=== PATIENT | female | born 1975 | race Caucasian/White ===

== ENCOUNTER 2020-08-01 15:34 | Emergency (ER) | payer MEDICAID ==
--- NOTE | 2020-08-01 17:01 | ER Document Report ---
ED Medical Screen (RME) - General Chief Complaint: Shortness Of Breath Stated Complaint: SHORTNESS OF BREATH Time Seen by Provider: 08/01/20 16:58 Mode of Arrival: Wheelchair Information source: Patient Notes: 45-year-old female presents to ED for complaint of shortness of breath. She states she just left the hospital Saturday she states she was diagnosed with pneumonia. She states she has multiple antibiotic allergies and she does not remember the list. She states she cannot remember how long she was in the hospital or what antibiotic she was on. She states she did have IV antibiotics. She states she is not on any antibiotics at home. She states she left the hospital AMA on Saturday. She says someone will have to call her fianc for what allergies she has. I have greeted and performed a rapid initial assessment of this patient. A comprehensive ED assessment and evaluation of the patient, analysis of test results and completion of medical decision making process will be conducted by an additional ED providers. - Related Data Allergies/Adverse Reactions: metronidazole [From Flagyl] Allergy (Verified 08/01/20 16:58) morphine Allergy (Verified 08/01/20 16:58) Physical Exam - Vital signs Vitals: Temp Pulse Resp BP Pulse Ox 98.3 F 100 18 118/72 100 08/01/20 16:57 08/01/20 16:57 08/01/20 16:57 08/01/20 16:57 08/01/20 16:57 Course - Vital Signs Vital signs: Temp Pulse Resp BP Pulse Ox 98.3 F 100 18 118/72 100 08/01/20 16:57 08/01/20 16:57 08/01/20 16:57 08/01/20 16:57 08/01/20 16:57
--- NOTE | 2020-08-01 18:27 | RADIOLOGY REPORT (SQ) ---
EXAM DESCRIPTION: CHEST SINGLE VIEW IMAGES COMPLETED DATE/TIME: 08/01/2020 5:51 pm REASON FOR STUDY: Short of breath diagnosed with pneumonia left AMA COMPARISON: None. EXAM PARAMETERS: NUMBER OF VIEWS: One view. TECHNIQUE: Single frontal radiographic view of the chest acquired. RADIATION DOSE: NA LIMITATIONS: None. FINDINGS: LUNGS AND PLEURA: There is patchy opacification in the left mid lung field. MEDIASTINUM AND HILAR STRUCTURES: No masses. Contour normal. HEART AND VASCULAR STRUCTURES: Heart normal in size. Normal vasculature. BONES: No acute findings. HARDWARE: None in the chest. OTHER: No other significant finding. IMPRESSION: Lingular/ left lower lobe pneumonia. TECHNICAL DOCUMENTATION: JOB ID: [id number] 2010 [employer]- All Rights Reserved Reading location - IP/workstation name: [email or web address]
[2020-08-01 19:57] LABS: ABSOLUTE EOSINOPHILS # (AUTO) 0.1 10^3/uL (0.0-0.6); ABSOLUTE LYMPHOCYTES (AUTO) 2.2 10^3/uL (0.5-4.7); ABSOLUTE MONOCYTES (AUTO) 0.5 10^3/uL (0.1-1.4); ABSOLUTE NEUT (AUTO) 3.2 10^3/uL (1.7-8.2); BASOPHILS % (AUTO) 0.6 % (0-2); EOSINOPHILS % (AUTO) 1.8 % (0-6); HEMATOCRIT 33.8 % (36.0-47.0); HEMOGLOBIN 11.7 g/dL (12.0-15.5); LYMPHOCYTES % (AUTO) 36.8 % (13-45); MEAN CORPUSCULAR HGB CONC 34.5 g/dL (32.0-36.0); MEAN CORPUSCULAR VOLUME 90 fl (80-97); MONOCYTES % (AUTO) 7.9 % (3-13); PLATELET COUNT 453 10^3/uL (150-450); RED BLOOD COUNT 3.76 10^6/uL (3.72-5.28); RED CELL DISTRIBUTION WIDTH 12.6 % (11.5-14.0); SEGMENTED NEUTROPHILS % (AUTO) 52.9 % (42-78); TOTAL CELLS COUNTED % (AUTO) 100 %
[2020-08-01 20:01] LABS: A TYPE INFLUENZA AG NEGATIVE (NEGATIVE); B INFLUENZA AG NEGATIVE (NEGATIVE)
[2020-08-01 20:05] LABS: ALBUMIN 3.6 g/dL (3.5-5.0); ALKALINE PHOSPHATASE 182 U/L (38-126); ANION GAP 6 (5-19); ASPARTATE AMINO TRANSFERASE 30 U/L (14-36); BILIRUBIN,DIRECT 0.1 mg/dL (0.0-0.4); BILIRUBIN,TOTAL 0.4 mg/dL (0.2-1.3); BLOOD UREA NITROGEN 8 mg/dL (7-20); CALCIUM 8.8 mg/dL (8.4-10.2); CARBON DIOXIDE 29 mmol/L (22-30); CHLORIDE 103 mmol/L (98-107); GLUCOSE 89 mg/dL (75-110); POTASSIUM 4.1 mmol/L (3.6-5.0); TOTAL PROTEIN 6.6 g/dL (6.3-8.2)
--- NOTE | 2020-08-01 21:56 | ER Document Report ---
ED Respiratory Problem - General Chief Complaint: Shortness Of Breath Stated Complaint: SHORTNESS OF BREATH Time Seen by Provider: 08/01/20 16:58 Mode of Arrival: Wheelchair Information source: Patient Notes: 08/01/20 16:59 - Nursing Note by INOCENTE TAYLOR Num: [id number] : 1975 Patient Age: 45 Pt arrives to triage stating she is sob. pt states that she left [facility] AMA Saturday after being diagnosed with pna. pt reports that she is allergic to a lot of medications but is unsure of what. Pt states that she is unsure of her other s/s or problems. Pt states that her pna is also making it hard to walk. pt is a&ox4 whit e/u respirations. ED Medical Screen ([facility]) - General Chief Complaint: Shortness Of Breath Stated Complaint: SHORTNESS OF BREATH Time Seen by Provider: 08/01/20 16:58 Mode of Arrival: Wheelchair Information source: Patient Notes: 45-year-old female presents to ED for complaint of shortness of breath. She states she just left the hospital Saturday she states she was diagnosed with pneumonia. She states she has multiple antibiotic allergies and she does not remember the list. She states she cannot remember how long she was in the hospital or what antibiotic she was on. She states she did have IV antibiotics. She states she is not on any antibiotics at home. She states she left the hospital AMA on Saturday. She says someone will have to call her fianc for what allergies she has. MY NOTES 45-year-old female arrives by POV after becoming more short of breath and more confused today. Patient had checked herself out of [facility] after all they were doing for her was putting antibiotics and by IV. She checked herself out after 12 hours. She said she felt much improvement. She initially began to have symptoms 1 week ago shortly after getting her flu shot. She works at [employer] in [place] and began be quite symptomatic around a few days afterwards receiving the flu shot and by Saturday she was having fainting type spells and then was sent to [facility] where it was found she had pneumonia. Patient reports she tested negative for Covid. Chest x-ray today at [facility] reveals left lower lobe infiltrate. Patient reports she has allergy to multiple medicines to include a list on her phone which include Flagyl morphine Levaquin Macrobid as well as 2 or 3 others. Rocephin and Zithromax are not on her allergy list. Patient denies any hemoptysis but does feel drowsy from her illness. I advised off work for 1 week TRAVEL OUTSIDE OF THE [place] IN LAST 30 DAYS: No - HPI Patient complains to provider of: Chest pain, Cough Onset: Last week Duration: Worse/persistent Quality of pain: Achy Severity: Mild Pain Level: 2 - Related Data Allergies/Adverse Reactions: metronidazole [From Flagyl] Allergy (Verified 08/01/20 16:58) morphine Allergy (Verified 08/01/20 16:58) Past Medical History - General Information source: Patient - Social History Smoking Status: Never Smoker Cigarette use (# per day): No Chew tobacco use (# tins/day): No Smoking Education Provided: No Frequency of alcohol use: None Lives with: Family - MRI 1 more time can you ask most of the check and see if the lady and 37 is a smoker and drinker your Family History: Reviewed & Not Pertinent Patient has suicidal ideation: No Patient has homicidal ideation: No - RN thanks to neuro Review of Systems - Review of Systems Constitutional: See HPI, Malaise, Weakness, Recent illness EENT: No symptoms reported Cardiovascular: No symptoms reported Respiratory: See HPI, Cough, Hurts to breathe Gastrointestinal: No symptoms reported Genitourinary: No symptoms reported Female Genitourinary: No symptoms reported Musculoskeletal: No symptoms reported Skin: No symptoms reported Hematologic/Lymphatic: No symptoms reported Neurological/Psychological: See HPI, Weakness -: Yes All other systems reviewed and negative Physical Exam - Vital signs Vitals: Temp Pulse Resp BP Pulse Ox 98.3 F 100 18 118/72 100 08/01/20 16:57 08/01/20 16:57 08/01/20 16:57 08/01/20 16:57 08/01/20 16:57 Interpretation: Normal - General General appearance: Appears well, Alert - HEENT Head: Normocephalic, Atraumatic Eyes: Normal Pupils: PERRL - Respiratory Respiratory status: No respiratory distress Chest status: Tender - Left lower CVA tenderness on palpation Breath sounds: Decreased air movement - Left lower lobe posteriorly, Nonproductive cough Chest palpation: Normal - Cardiovascular Rhythm: Regular Heart sounds: Normal auscultation Murmur: No - Abdominal Inspection: Normal Distension: No distension Bowel sounds: Normal Tenderness: Nontender Organomegaly: No organomegaly - Rectal Hemorrhoids: Other - Deferred - Genitourinary Bimanuel exam: Other - Deferred - Back Back: Normal, Nontender - Extremities General upper extremity: Normal inspection, Nontender, Normal color, Normal ROM, Normal temperature General lower extremity: Normal inspection, Nontender, Normal color, Normal ROM, Normal temperature, Normal weight bearing. No: Catrina's sign - Neurological Neuro grossly intact: Yes Cognition: Normal Orientation: AAOx4 Meagan Coma Scale Eye Opening: Spontaneous Mohawk Coma Scale Verbal: Oriented Mohawk Coma Scale Motor: Obeys Commands Mohawk Coma Scale Total: 15 Speech: Normal Motor strength normal: LUE, RUE, LLE, RLE Sensory: Normal - Psychological Associated symptoms: Normal affect, Normal mood - Skin Skin Temperature: Warm Skin Moisture: Dry Skin Color: Normal Course - Vital Signs Vital signs: Temp Pulse Resp BP Pulse Ox 98.3 F 100 18 118/72 100 08/01/20 16:57 08/01/20 16:57 08/01/20 16:57 08/01/20 16:57 08/01/20 16:57 - Laboratory Result Diagrams: 08/01/20 19:37 08/01/20 19:37 Laboratory results interpreted by me: 08/01/20 08/01/20 19:37 19:37 Hgb 11.7 L Hct 33.8 L Plt Count 453 H Alkaline Phosphatase 182 H - Diagnostic Test Radiology reviewed: Reports reviewed Discharge - Discharge Clinical Impression: Pneumonia Qualifiers: Pneumonia type: due to unspecified organism Laterality: left Lung location: lower lobe of lung Qualified Code(s): J18.9 - Pneumonia, unspecified organism Condition: Stable Disposition: HOME, SELF-CARE Additional Instructions: Off work x1 week return to ER as needed take medicines as directed. Encourage fluids take Tessalon pearls for cough as needed. Take your Zithromax as needed. Also take Decadron for inflammation. Also take Pepcid for inflammation. Prescriptions: Benzonatate [Tessalon Perles 100 mg Capsule] 100 mg PO Q8HP PRN #40 capsule PRN Reason: Dexamethasone [Decadron 4 Mg Tablet] 4 mg PO DAILY #5 tablet Famotidine [Pepcid 20 mg Tablet] 20 mg PO BID #12 tablet Azithromycin [Zithromax 250 mg Tablet] 250 mg PO ASDIR PRN #6 tablet PRN Reason: Forms: Return to Work
[2020-08-01] MEDS ORDERED: AZITHROMYCIN 250 MG TABLET PO ONE (21:59)
[2020-08-01] MEDS ORDERED: CEFTRIAXONE INJ 1000 MG VIAL IM ONE (21:59)
[2020-08-01 22:23] VITALS: BP 122/81
== END 2020-08-01 23:50 | disposition home or self-care (01) ==
LOC: ER 15:34
DX: H18.9 Unspecified disorder of cornea (principal); R06.02 Shortness of breath; R53.1 Weakness; Z88.1 Allergy status to other antibiotic agents; Z88.6 Allergy status to analgesic agent
CPT/HCPCS: 99284; 96372; 36415; 87070; 87880; 85025; 80053; 87804; 71045; Q0144; J0696